=== PATIENT | male | born 2000 | race African-American/Black ===

== ENCOUNTER 2025-03-11 08:07 | Emergency (ER) | payer MEDICAID ==
[~2025-03-11] VITALS: Ht 188 cm; Wt 91.0 kg
[2025-03-11 08:14] VITALS: TEMP 36.7; O2SAT 98
[2025-03-11] MEDS: IBUPROFEN 600MG TABLET PO ONE (08:51)
[2025-03-11 10:35] VITALS: BP 120/73; PULSE 78; RESP 16; O2SAT 99
== END 2025-03-11 10:39 | disposition home or self-care (01) ==
LOC: ER 08:07
DX: M25.572 Pain in left ankle and joints of left foot (principal); Z79.899 Other long term (current) drug therapy; X58.XXXA Exposure to other specified factors, initial encounter; Y93.67 Activity, basketball; Y92.89 Other specified places as the place of occurrence of the external cause; Y99.8 Other external cause status
CPT/HCPCS: 99284; 29515; 73610; 73630; A6449